=== PATIENT | male | born 1955 | race Caucasian/White ===

== ENCOUNTER 2022-07-25 10:26 | Day surgery (SDC) | payer OTHER ==
[2022-07-21 09:18] LABS: BASOPHILS % (AUTO) 0.7 % (0-1); EOSINOPHILS # (AUTO) 0.1 X10'3 (0-0.9); EOSINOPHILS % (AUTO) 2.6 % (0-6); HEMATOCRIT 48.5 % (42.0-52.0); LYMPHOCYTES # (AUTO) 1.1 X10'3 (1.1-4.8); LYMPHOCYTES % (AUTO) 25.9 % (21-51); MEAN CORPUSCULAR HEMOGLOBIN 31.4 PG (27.0-31.0); MEAN CORPUSCULAR HGB CONC 32.9 g/dL (33.0-36.5); MEAN CORPUSCULAR VOLUME 95.3 FL (78-98); MEAN PLATELET VOLUME 7.9 FL (7.4-10.4); MONOCYTES # (AUTO) 0.3 X10'3 (0-0.9); MONOCYTES % (AUTO) 7.3 % (2-12); NEUTROPHILS # (AUTO) 2.6 X10'3 (1.8-7.7); NEUTROPHILS % (AUTO) 63.5 % (42-75); PLATELET COUNT 138 X10'3 (140-440); RED BLOOD COUNT 5.08 X10'6 (4.70-6.10); RED CELL DISTRIBUTION WIDTH 16.9 % (11.5-14.5); WHITE BLOOD COUNT 4.2 X10'3 (4.5-11.0)
[2022-07-21 09:28] LABS: ALBUMIN 3.5 G/DL (3.4-5.0); ANION GAP 8 (8-16); BLOOD UREA NITROGEN 20 MG/DL (7-18); CALCIUM 8.8 MG/DL (8.5-10.1); CHLORIDE 107 MMOL/L (99-107); CREATININE 2.22 MG/DL (0.60-1.10); GLUCOSE 124 MG/DL (70-104); POTASSIUM 4.6 MMOL/L (3.5-5.1); SODIUM 143 MMOL/L (135-145); eGFR 30 ML/MIN
[2022-07-21 09:29] LABS: APTT 31 SECONDS (22-32)
[2022-07-25] VITALS (16 sets, daily range): BP systolic 112–144; BP diastolic 56–100
[~2022-07-25] VITALS: Ht 185.4 cm; Wt 138.3 kg
[2022-07-25] MEDS ORDERED: normal saline 1000ml 1,000 ML IV SCH (10:40)
[2022-07-25] MEDS ORDERED: fentaNYL/PF 50MCG/1 ML 2ML syringe IV ONE (10:40)
[2022-07-25] MEDS ORDERED: MIDAZolam 1mg/ml 10ml vial IV ONE (10:40)
[2022-07-25] MEDS ORDERED: APIX5TAB3 PO (10:47)
[2022-07-25] MEDS ORDERED: GABA600T13 PO (10:47)
[2022-07-25] MEDS ORDERED: TERA10CA4 PO (10:47)
[2022-07-25] MEDS ORDERED: METF-1203 PO (10:47)
[2022-07-25] MEDS ORDERED: CARV-50 PO (10:47)
[2022-07-25] MEDS ORDERED: HYDR-3973 PO (10:47)
[2022-07-25] MEDS ORDERED: LISI10TA27 PO (10:47)
[2022-07-25] MEDS ORDERED: FURO40TA4 PO (10:47)
[2022-07-25] MEDS ORDERED: AMIO200T61 PO (10:47)
[2022-07-25] MEDS ORDERED: POTA-206 PO (10:47)
[2022-07-25] MEDS ORDERED: PIOG30TA72 PO (10:47)
[2022-07-25] MEDS ORDERED: atropine 0.1mg/ml 10ml syringe ONE ×2 (13:26→13:36)
== END 2022-07-25 15:30 | disposition home or self-care (01) ==
LOC: SSTAY O 10:26
PROVIDERS: ATTEND Student in an Organized Health Care Education/Training Program
DX: I48.91 Unspecified atrial fibrillation (principal); G47.33 Obstructive sleep apnea (adult) (pediatric); E11.22 Type 2 diabetes mellitus with diabetic chronic kidney disease; N18.9 Chronic kidney disease, unspecified; I13.0 Hypertensive heart and chronic kidney disease with heart failure and stage 1 through stage 4 chronic kidney disease, or unspecified chronic kidney disease; Z98.890 Other specified postprocedural states; Z79.899 Other long term (current) drug therapy; I27.20 Pulmonary hypertension, unspecified
CPT/HCPCS: 36415; 80048; 82948; 85025; 85610; 85730; 92960; 93005; J2250; J3010; J7030; A4620; J0461

== ENCOUNTER 2024-06-09 09:05 | Inpatient (IN) | payer MEDICARE, OTHER ==
[2024-06-04 15:47] LABS: BASOPHILS % (AUTO) 0.5 % (0-1); EOSINOPHILS # (AUTO) 0.1 X10'3 (0-0.9); EOSINOPHILS % (AUTO) 1.8 % (0-6); LYMPHOCYTES # (AUTO) 1.6 X10'3 (1.1-4.8); LYMPHOCYTES % (AUTO) 29.3 % (21-51); MEAN CORPUSCULAR HEMOGLOBIN 32.2 PG (27.0-31.0); MEAN CORPUSCULAR HGB CONC 33.4 g/dL (33.0-36.5); MEAN CORPUSCULAR VOLUME 96.4 FL (78-98); MEAN PLATELET VOLUME 7.9 FL (7.4-10.4); MONOCYTES # (AUTO) 0.4 X10'3 (0-0.9); MONOCYTES % (AUTO) 6.7 % (2-12); NEUTROPHILS # (AUTO) 3.3 X10'3 (1.8-7.7); NEUTROPHILS % (AUTO) 61.7 % (42-75); PRE OP HEMATOCRIT 51.3 % (42.0-52.0); PRE OP HEMOGLOBIN 17.1 g/dL (14.0-17.9); PRE OP PLATELET COUNT 151 X10'3 (140-440); PRE OP WHITE BLOOD COUNT 5.3 10'3 (4.8-10.8); RED BLOOD COUNT 5.32 X10'6 (4.70-6.10); RED CELL DISTRIBUTION WIDTH 18.5 % (11.5-14.5)
[2024-06-04 16:05] LABS: ALBUMIN 3.6 G/DL (3.4-5.0); ALKALINE PHOSPHATASE 71 IU/L (46-116); BLOOD UREA NITROGEN 28 MG/DL (7-18); BUN/CREATININE RATIO 13.3 (10.0-20.0); CALCIUM 9.5 MG/DL (8.5-10.1); CHLORIDE 105 MMOL/L (99-107); PRE OP ALT 30 U/L (30-65); PRE OP ANION GAP 8 (8-16); PRE OP BILIRUB, TOTAL 1.1 MG/DL (0.0-1.0); PRE OP SODIUM 142 MMOL/L (135-145); TOTAL CARBON DIOXIDE 29.2 MMOL/L (24-32); TOTAL PROTEIN 7.1 G/DL (6.4-8.2); eGFR 32 ML/MIN
[2024-06-04 16:18] LABS: PRE OP AST 17 U/L (10-37); PRE OP GLUCOSE 113 MG/DL (70-104); PRE OP POTASSIUM 5.3 MMOL/L (3.4-5.1)
[2024-06-04 16:19] LABS: HEMOGLOBIN A1C 6.7 % (4.5-6.2)
[~2024-06-09] VITALS: Ht 182.9 cm; Wt 130.8 kg
[2024-06-09] VITALS (24 sets, daily range): BP systolic 110–167; BP diastolic 72–131; PULSE 63–94; RESP 10–20; TEMP 96–98.4; O2SAT 92–99
[2024-06-09] MEDS: Cefazolin 3 GM/100ML NS IVPB 100 ML IV ONE (05:30)
[~2024-06-09 09:05] MED LIST: APIX5TAB3 PO; ATOR10TA87 PO; CARV-50 PO; FURO40TA4 PO; GABA300C PO; GABA600T13 PO; HYDR-3973 PO; LISI10TA27 PO; METF-1203 PO; PIOG30TA72 PO; POTA-206 PO; TERA10CA4 PO
[2024-06-09] MEDS: famotidine 20mg tablet PO ONE (09:53)
[2024-06-09] MEDS: ringers solution, lacted 1,000 ML IV SCH ×2 (09:54→15:59)
[2024-06-09] MEDS: tranexamic acid 650mg tablet PO ONE (09:54)
[2024-06-09] MEDS: vancomycin 1,500 MG in NS 300ml IV soln IV ONE (09:55)
[2024-06-09 10:37] LABS: ISTAT CREATININE 1.4 mg/dL (0.8-1.3); ISTAT HGB 16.3 g/dl (14.0-17.9); ISTAT IONIZED CALCIUM 1.2 mmol/L (1.03-1.32); ISTAT K 4.8 mmol/L (3.5-5.1); POC BUN/CREATININE RATIO 15.7 (5.4-32.0)
[2024-06-09] MEDS ORDERED: ROPIVAcaine 0.5% (5mg/ml) 30ml vial ONE (12:33)
[2024-06-09] MEDS ORDERED: LIDOcaine 2% (20mg/ml) 5ml vial ONE (12:34)
[2024-06-09] MEDS ORDERED: propofol inj 20 ML IV ONE (12:34)
[2024-06-09] MEDS ORDERED: fentaNYL/PF 50MCG/1 ML 2ML syringe ONE (13:20)
[2024-06-09] MEDS ORDERED: sevoflurane 250ml liquid IH ONE (13:23)
[2024-06-09] MEDS ORDERED: acetaminophen 1,000mg/100ml IV 100 ML IV ONE (14:00)
[2024-06-09] MEDS ORDERED: ondansetron/PF 4mg/2ml inj ONE (14:14)
[2024-06-09] MEDS ORDERED: fentaNYL/PF 50MCG/1 ML 2ML syringe IV PRN ×2 (14:25)
[2024-06-09] MEDS ORDERED: morphine 4 MG/ML inj SYRINge IV PRN (14:25)
[2024-06-09] MEDS ORDERED: ROPIVAcaine 0.2% (10 MG/5 ML) BOLUS INJECTION INTERSCALE PRN (14:25)
[2024-06-09] MEDS ORDERED: morphine 2 MG/ML inj. syringe IV PRN (14:25)
[2024-06-09] MEDS ORDERED: ondansetron/PF 4mg/2ml inj IV PRN ×2 (14:25→16:20)
[2024-06-09] MEDS ORDERED: enalaprilat dihydrate 2.5mg/2ml vial IV PRN (14:25)
[2024-06-09] MEDS ORDERED: hydrALAZINE 20mg/ml inj. IV PRN (14:25)
[2024-06-09] MEDS: ROPIVAcaine 0.5% (5mg/ml) 30ml vial ONE ×2 (15:56)
[2024-06-09] MEDS: DOCUMENT DATE & TIME OF BETA-BLOCKER PO ONE (15:56)
[2024-06-09] MEDS: ketorolac trometh. 30mg/ml inj. ONE (15:56)
[2024-06-09] MEDS: ROPIVAcaine 0.2%/PF PUMP/bolus 545 ML INTERSCALE SCH (15:59)
[2024-06-09] MEDS ORDERED: acetaminophen 325mg tablet PO PRN (16:20)
[2024-06-09] MEDS ORDERED: HYDROmorphone inj. 0.5 MG/0.5 ML DISP.SYRIN IV PRN (16:20)
[2024-06-09] MEDS ORDERED: diphenhydrAMINE 25mg capsule PO PRN ×2 (16:20)
[2024-06-09] MEDS: hydrALAZINE 20mg/ml inj. IV ONE (17:12)
[2024-06-09] MEDS: potassium cl 20mEq in 1/2 NS 1,000 ML IV SCH (17:20)
[2024-06-09] MEDS: metFORMIN 500mg tablet PO SCH (17:22)
[2024-06-09] MEDS: oxyCODONE IR 5mg (immed. release) tablet PO PRN (18:19)
[2024-06-09] MEDS: HYDROmorphone 1 mg/ml syringe IV PRN (18:19)
[2024-06-09] MEDS: carvedilol 6.25mg tablet PO SCH (20:39)
[2024-06-09] MEDS: apixaban 5mg tablet PO SCH (20:40)
[2024-06-09] MEDS: gabapentin 300mg capsule PO SCH (20:40)
[2024-06-09] MEDS: acetaminophen 325mg tablet PO SCH (20:43)
[2024-06-09] MEDS: terazosin 5mg capsule PO SCH (20:43)
[2024-06-09] MEDS: sennosides 8.6mg tablet PO SCH (20:43)
[2024-06-09] MEDS: atorvastatin 10mg tablet PO SCH (20:43)
[2024-06-09] MEDS: lisinopril 10 MG tablet PO SCH (20:44)
[2024-06-09] MEDS: vancomycin/NS 1 GM ADD-VANTAGE 250 ML IV SCH (20:44)
[2024-06-10] MEDS: ceFAZolin/D5W- 1GM premix 50 ML IV SCH (00:09)
[2024-06-10 02:00] VITALS: BP 167/111; PULSE 89; RESP 18; TEMP 98.6; O2SAT 96
[2024-06-10 05:36] LABS: BASOPHILS % (AUTO) 0.1 % (0-1); EOSINOPHILS % (AUTO) 0 % (0-6); HEMOGLOBIN 14.7 g/dl (14.0-17.9); LYMPHOCYTES % (AUTO) 11.9 % (21-51); MEAN CORPUSCULAR HEMOGLOBIN 31.5 PG (27.0-31.0); MEAN CORPUSCULAR HGB CONC 32.6 g/dL (33.0-36.5); MEAN CORPUSCULAR VOLUME 96.7 FL (78-98); MEAN PLATELET VOLUME 8.1 FL (7.4-10.4); MONOCYTES # (AUTO) 0.3 X10'3 (0-0.9); MONOCYTES % (AUTO) 3.7 % (2-12); NEUTROPHILS # (AUTO) 7.3 X10'3 (1.8-7.7); NEUTROPHILS % (AUTO) 84.3 % (42-75); PLATELET COUNT 129 X10'3 (140-440); RED BLOOD COUNT 4.66 X10'6 (4.70-6.10); RED CELL DISTRIBUTION WIDTH 18.2 % (11.5-14.5); WHITE BLOOD COUNT 8.6 X10'3 (4.5-11.0)
[2024-06-10 06:00] VITALS: BP 123/65; PULSE 80; RESP 16; TEMP 96.9; O2SAT 96
[2024-06-10 06:17] LABS: ANION GAP 6 (8-16); CHLORIDE 105 MMOL/L (99-107); POTASSIUM 5.8 MMOL/L (3.5-5.1); SODIUM 136 MMOL/L (135-145); TOTAL CARBON DIOXIDE 24.8 MMOL/L (24-32)
[2024-06-10] MEDS: potassium chloride 10mEq ER tablet PO SCH (08:00)
[2024-06-10] MEDS ORDERED: celeCOXIB 100mg capsule PO SCH (08:00)
[2024-06-10] MEDS: furosemide 40mg tablet PO SCH (08:31)
[2024-06-10] MEDS: aspirin 325mg tablet PO SCH (08:32)
[2024-06-10] MEDS: pioglitazone 15mg tablet PO SCH (08:32)
[2024-06-10 11:00] VITALS: BP 97/61; PULSE 77; RESP 16; TEMP 98.2; O2SAT 95
[2024-06-10] MEDS: gabapentin 300mg capsule PO SCH (13:24)
[2024-06-10 18:00] VITALS: BP 100/68; PULSE 80; RESP 18; TEMP 97.1; O2SAT 96
[2024-06-10] MEDS: celeCOXIB 100mg capsule PO SCH (20:09)
[2024-06-10 22:00] VITALS: BP 128/86; PULSE 85; RESP 13; TEMP 97.7; O2SAT 94
[2024-06-11 06:00] VITALS: BP 100/65; PULSE 79; RESP 16; TEMP 97.3; O2SAT 79
[2024-06-11 07:23] LABS: BASOPHILS % (AUTO) 0.4 % (0-1); EOSINOPHILS # (AUTO) 0.1 X10'3 (0-0.9); EOSINOPHILS % (AUTO) 0.8 % (0-6); HEMATOCRIT 41.7 % (42.0-52.0); HEMOGLOBIN 13.4 g/dl (14.0-17.9); LYMPHOCYTES # (AUTO) 1.4 X10'3 (1.1-4.8); LYMPHOCYTES % (AUTO) 20.9 % (21-51); MEAN CORPUSCULAR HEMOGLOBIN 31.4 PG (27.0-31.0); MEAN CORPUSCULAR HGB CONC 32.2 g/dL (33.0-36.5); MEAN CORPUSCULAR VOLUME 97.7 FL (78-98); MEAN PLATELET VOLUME 8.2 FL (7.4-10.4); MONOCYTES # (AUTO) 0.4 X10'3 (0-0.9); MONOCYTES % (AUTO) 5.8 % (2-12); NEUTROPHILS # (AUTO) 4.9 X10'3 (1.8-7.7); NEUTROPHILS % (AUTO) 72.1 % (42-75); PLATELET COUNT 122 X10'3 (140-440); RED BLOOD COUNT 4.27 X10'6 (4.70-6.10); RED CELL DISTRIBUTION WIDTH 18.4 % (11.5-14.5); WHITE BLOOD COUNT 6.8 X10'3 (4.5-11.0)
[2024-06-11 10:00] VITALS: BP 100/65; PULSE 76; RESP 16; TEMP 97.9; O2SAT 98
[2024-06-11] MEDS ORDERED: acetaminophen 325mg tablet PO PRN (13:15)
[2024-06-11 18:00] VITALS: BP 100/63; PULSE 64; RESP 16; TEMP 96.4; O2SAT 93
[2024-06-11 20:00] VITALS: RESP 16; O2SAT 93
[2024-06-11] MEDS: magnesium hydroxide 30ml (MOM) UD suspension PO PRN (20:08)
[2024-06-11 22:00] VITALS: BP 102/72; PULSE 89; RESP 15; TEMP 97.7; O2SAT 96
[2024-06-12] VITALS (7 sets, daily range): BP systolic 90–157; BP diastolic 49–81; PULSE 69–91; RESP 14–24; TEMP 95.8–98.1; O2SAT 90–94
[2024-06-12 07:15] LABS: BASOPHILS % (AUTO) 0.2 % (0-1); EOSINOPHILS # (AUTO) 0.1 X10'3 (0-0.9); HEMOGLOBIN 12.6 g/dl (14.0-17.9); LYMPHOCYTES # (AUTO) 1.4 X10'3 (1.1-4.8); LYMPHOCYTES % (AUTO) 24.5 % (21-51); MEAN CORPUSCULAR HEMOGLOBIN 32.1 PG (27.0-31.0); MEAN CORPUSCULAR HGB CONC 33.2 g/dL (33.0-36.5); MEAN CORPUSCULAR VOLUME 96.7 FL (78-98); MEAN PLATELET VOLUME 8.4 FL (7.4-10.4); MONOCYTES # (AUTO) 0.5 X10'3 (0-0.9); MONOCYTES % (AUTO) 9.1 % (2-12); NEUTROPHILS # (AUTO) 3.6 X10'3 (1.8-7.7); NEUTROPHILS % (AUTO) 64.2 % (42-75); PLATELET COUNT 110 X10'3 (140-440); RED BLOOD COUNT 3.93 X10'6 (4.70-6.10); WHITE BLOOD COUNT 5.6 X10'3 (4.5-11.0)
[2024-06-12 07:38] LABS: ALANINE AMINOTRANSFERASE 15 U/L (12-78); ALBUMIN 2.6 G/DL (3.4-5.0); ALBUMIN/GLOBULIN RATIO 0.9 (1.1-1.5); ALKALINE PHOSPHATASE 55 IU/L (46-116); ANION GAP 6 (8-16); ASPARTATE AMINO TRANSFERASE 11 U/L (10-37); BILIRUBIN,TOTAL 0.6 MG/DL (0.1-1.0); BLOOD UREA NITROGEN 51 MG/DL (7-18); BUN/CREATININE RATIO 24.2 (10.0-20.0); CALCIUM 8.6 MG/DL (8.5-10.1); CHLORIDE 103 MMOL/L (99-107); CREATININE 2.11 MG/DL (0.60-1.10); GLUCOSE 118 MG/DL (70-104); POTASSIUM 4.9 MMOL/L (3.5-5.1); SODIUM 135 MMOL/L (135-145); TOTAL CARBON DIOXIDE 25.8 MMOL/L (24-32); TOTAL PROTEIN 5.6 G/DL (6.4-8.2); eCRCL 38 ML/MIN; eGFR 32 ML/MIN
[2024-06-12] MEDS: bisacodyl 10mg suppository rectal RC PRN (18:52)
[2024-06-13 06:00] VITALS: BP 108/70; PULSE 72; RESP 16; TEMP 97.8; O2SAT 93
[2024-06-13 07:00] VITALS: RESP 18; O2SAT 94
[2024-06-13 10:00] VITALS: BP 114/66; PULSE 68; RESP 18; TEMP 97.2; O2SAT 94
[2024-06-13 18:00] VITALS: BP 121/59; PULSE 58; RESP 20; TEMP 97.2; O2SAT 95
[2024-06-13 22:00] VITALS: BP 143/86; PULSE 76; RESP 17; TEMP 97.5; O2SAT 97
[2024-06-14] MEDS: oxyCODONE IR 5mg (immed. release) tablet PO PRN (01:37)
[2024-06-14 06:00] VITALS: BP 107/66; PULSE 58; RESP 16; TEMP 98; O2SAT 94
[2024-06-14 10:00] VITALS: BP 107/66; PULSE 78; RESP 18; TEMP 98.3; O2SAT 93
== END 2024-06-14 14:26 | disposition home or self-care (01) | DRG 483 ==
LOC: PAS 09:05 → MERGE 09:30 → ORTHO 4S 16:23
PROVIDERS: ADMIT Orthopaedic Surgery; ATTEND Orthopaedic Surgery
PROC: 0RRK00Z Replacement of Left Shoulder Joint with Reverse Ball and Socket Synthetic Substitute, Open Approach (ICD-10-PCS; 2024-06-09)
PROC: 3E0T3BZ Introduction of Anesthetic Agent into Peripheral Nerves and Plexi, Percutaneous Approach (ICD-10-PCS; 2024-06-09)
PROC: 3E0T33Z Introduction of Anti-inflammatory into Peripheral Nerves and Plexi, Percutaneous Approach (ICD-10-PCS; 2024-06-09)
PROC: 0RPK0JZ Removal of Synthetic Substitute from Left Shoulder Joint, Open Approach (ICD-10-PCS; principal; 2024-06-09 13:23)
PROC: 5A09357 Assistance with Respiratory Ventilation, Less than 24 Consecutive Hours, Continuous Positive Airway Pressure (ICD-10-PCS; 2024-06-10)
PROC: 5A09357 Assistance with Respiratory Ventilation, Less than 24 Consecutive Hours, Continuous Positive Airway Pressure (ICD-10-PCS; 2024-06-12)
DX: M75.122 Complete rotator cuff tear or rupture of left shoulder, not specified as traumatic (principal); G89.29 Other chronic pain; Z96.612 Presence of left artificial shoulder joint
CPT/HCPCS: Z7506; Z7508; 36415; 73030; 80047; 80051; 80053; 82948; 83036; 85025; 87070; 87075; 87081; 97110; 97116; 97161; 97530; 97535; A4565; A4615; A4618; A6250; A7000; C1713; C1776; G0378; J0131; J0360; J0690; J1170; J1885; J2405; J2704; J2795; J3010; J3370; J3480; J3490; J7120